=== PATIENT | male | born 1985 | race Caucasian/White ===

== ENCOUNTER 2024-05-08 08:38 | Emergency (ER) | payer BC, SELFPAY ==
[2024-05-08] VITALS (30 sets, daily range): BP systolic 109–150; BP diastolic 73–115; PULSE 64–97; RESP 8–21; O2SAT 98
--- NOTE | 2024-05-08 08:45 | RT.EKG_ITS ---
APPROVED REPORT Exam: Resting ECG Reason for Exam: ?tia Patient Location: E HR:77 bpm ECG Measurements Heart Rate 77 AXIS GA 161 P 53 QRSd 86 QRS -5 QT 355 T 20 QTc 402 Conclusion Sinus rhythm...normal P axis, V-rate 60- 99
--- NOTE | 2024-05-08 09:00 | DI.CT_ITS ---
Exam(s) CT BRAIN NECK CTA EXAM: CT BRAIN NECK CTA CLINICAL HISTORY: right sided paresthesia, resolved. TECHNIQUE: Imaging Protocol: Axial CT angiography was performed with multi-slice acquisition and mu lti-planar and/or 3D reconstructions. CONTRAST MATERIAL: Intravenous: Omnipaque 350 Contrast volume:structured data in ml COMPARISON: None FINDINGS: CTA Neck W: Aortic arch anatomy: The aortic arch anatomy is conventional and there is no significant stenosis at the origin of the great vessels off of the aortic arch. No intimal flap evident. Anterior circulation: Both common carotid arteries ascend with normal luminal diameters. At the level the carotid bulbs and proximal internal carotid arteries there is no significant plaque/ no significant narrowing. The internal carotid arteries are patent without significant narrowing in the upper neck but there is a 360 degree turn in the upper left extracranial internal carotid artery and some milder tortuosity of the same vessel on the opposite-right side. Posterior circulation: Both vertebral arteries originate in conventional fashion off of the subclavian arteries and there is no obvious stenosis at the origin of the vertebral arteries. Both vertebral arteries exhibit normal luminal diameters within the foramen transversarium. Both vertebral arteries contribute to the formation of the basilar artery at the skull base. CTA Brain W: Anterior circulation: Both internal carotid arteries are patent in the skull base-carotid canals as well as within the cave rnous sinuses. The supraclinoid aspects of the ICAs are patent. Both A1 segments are patent as are the anterior cer ebral arteries and there is no evidence of aneurysm at the level of the anterior communicating artery . Both middle cerebral arteries are patent with no evidence of significant stenosis nor intraluminal th rombus. There also no aneurysms of these vessels. Posterior circulation: The basilar artery ascends in the midline. Distally it gives off patent bilateral superior cerebella r arteries. Above this level the basilar artery terminates as patent bilateral posterior cerebral arteries. There is no evidence of aneurysm at the tip of the basilar artery nor elsewhere in the [id number]-[id number] is. CT BRAIN: There is no evidence of intracranial hemorrhage, mass effect, or shift of midline structures. There are no extra-axial fluid collections. Ventricles are not enlarged or shifted. There are no ring enh ancing lesions in the brain and no abnormal meningeal enhancement. IMPRESSION: 1. Patent carotid arteries in the neck. No hemodynamically significant stenosis. However, the upper aspect of both internal carotid arteries in the neck are tortuous, more so on the left side. 2. Patent vertebral arteries. 3. Patent intracranial arteries. 4. No acute intracranial findings. No ring enhancing lesions in the brain. No aneurysms. Discussed by phone with ER provider. RADIATION DOSE DELIVERED: 2,400.43mGy.cm Total DLP DATA REPOSITORY: All CT scans at this facility are submitted to the National Radiology Data Registry (NRDR) Dose Index Registry (DIR) with the [employer] ([employer]). RADIATION OPTIMIZATION: All CT scans at this facility use at least one of these dose optimization te chniques: automated exposure control; mA and/or kV adjustment per patient size (includes targeted exa ms where dose is matched to clinical indication); or iterative reconstruction.
--- NOTE | 2024-05-08 09:02 | ED.GENADUL_ITS ---
Discharge Plan Disposition Patient Disposition: Home Condition: Stable Discharge Details Clinical Impression: Headache, Paresthesia Primary Care Provider: Rivera Mcgill ED Provider: German Amin Home Meds and New Rx's Prescriptions: Continued magnesium oxide 400 mg magnesium capsule 400 mg PO DAILY Discharge Instructions Additional Instructions: Your blood work and imaging did not show any concerning findings Follow-up with your primary care provider within 1 week I recommend taking a [id number] daily 81 mg aspirin daily follow-up with your primary care provider If you feel more ill or develop unilateral weakness, or changes in speech return to the emergency department for reevaluation HPI General Mode of arrival: ambulatory . Date/Time Provider Initiated Documentation: 05/08/24 08:39 . Limitations to Documentation: no limitations . Information obtained by: patient . History of Present Illness 38 year old M presents to the emergency department with the chief complaint of head pressure and right sided paresthesia, described as mild, Patient reports no radiation. Patient started experiencing this hour(s) (2) and it has been now resolved. No relieving factors improve symptom(s), No exacerbating factors reported . Patient notes denies chest pain and shortness of breath. Patient did receive the following treatments prior to arrival, none Related Data Home Medications ?Medication ?Instructions ?Recorded ?Confirmed magnesium oxide 400 mg PO DAILY 05/08/24 05/08/24 Allergies Allergy/AdvReac Type Severity Reaction Status Date / Time No Known Allergies Allergy Verified 05/08/24 08:47 General Stated Complaint: CVA/TIA BHANU: 3 Review of Systems All systems reviewed & are unremarkable except as noted in HPI and below Constitutional Constitutional: Denies chills, Denies fever(s) and Denies weakness Cardiovascular Cardiovascular: Denies chest pain and Denies dyspnea Respiratory Respiratory: Denies cough and Denies dyspnea Gastrointestinal Gastrointestinal: Denies abdominal pain, Denies nausea and Denies vomiting Musculoskeletal Musculoskeletal: Denies joint swelling Neurologic Neurologic: Denies weakness Exam Const General: no acute distress Orientation: alert HENMT Head: normal to inspection Ears: external ears normal General nose exam: external nose normal Mouth: moist mucous membranes Eyes General: appearance normal, both eyes and all related structures Neck Neck: normal visual inspection Resp Effort & Inspection: normal respiratory effort and able to speak in complete sentences Auscultation: clear to auscultation bilaterally Cardio Jugular venous pressure: no JVD Rate: regular rate Heart Sounds: no murmurs Skin General skin exam: no rashes or lesions noted Neuro General: patient alert and patient oriented x3 Extrem General: normal to inspection Psych Mental Status: mental status grossly normal Course Vital Signs Vital signs: Vital Signs Pulse 97 H 05/08/24 08:43 Respiratory Rate 20 05/08/24 08:43 Blood Pressure 150/115 H 05/08/24 08:43 Pulse Oximetry 98 05/08/24 08:43 Temperature Source Skin 05/08/24 08:43 Pulse 97 H 05/08/24 08:43 Respiratory Rate 20 05/08/24 08:43 Respiratory Effort Normal, Non-Labored 05/08/24 08:51 Blood Pressure 150/115 H 05/08/24 08:43 Blood Pressure Position Sitting 05/08/24 08:43 Pulse Oximetry 98 05/08/24 08:43 Oxygen Delivery Method Room Air 05/08/24 08:43 Oxygen Flow Rate 0 05/08/24 08:43 Pain Level 0 05/08/24 08:43 Medical Decision Making 38-year-old male with no significant chronic medical problems, states he had a seizure when he was in his 20s at one time and none since and had negative follow-up workup per patient, comes in with complaints that he had a pressure in his head while driving to work and then felt a coolness sensation on the right side of his body. The symptoms have since resolved and lasted a few minutes per the patient. 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 He denies any chest pain, weakness, fevers, chills. He is alert and oriented x 4 on arrival with normal gait. He has no focal motor or sensation deficits. Cranial nerves II through XII are intact. His NIH is 0 on exam. Unclear etiology for his symptoms that he had earlier that have since resolved. He had no weakness so does not seem entirely consistent with a TIA but will proceed with a CT and CTA of the brain and neck, and obtain CBC, CMP, troponin and monitor. Delta troponin negative and CTA and CT head unremarkable. Patient stable ambulatory without any deficits in gait, still has no findings concerning on neurological exam NIH still 0 Does not seem consistent entirely with a TIA but even if this is a TIA he is low risk and overall feel he can be managed outpati ent. He will follow-up with his PCP and return precautions given Differential Diagnosis Differential Diagnosis: TIA, stress response, hemorrhage Imaging Data Radiologic Study: Attestation: I personally reviewed and interpreted this imaging study as follows: Imaging: CT Scan Radiologist's impression: Patient Name: Venkata Mcpherson Unit #: [id number] Loc: ER Ordering Provider: German Amin M.D. Status: REG ER Primary Care Provider: Rivera Mcgill NP Date of Exam: 05/08/24 Sex: M : 1985 Age: 38 Exam(s) a CT:CT brain & neck CTA Exam(s) CT BRAIN NECK CTA EXAM: CT BRAIN NECK CTA CLINICAL HISTORY: right sided paresthesia, resolved. TECHNIQUE: Imaging Protocol: Axial CT angiography was performed with multi- slice acquisition and multi-planar and/or 3D reconstructions. CONTRAST MATERIAL: Intravenous: Omnipaque 350 Contrast volume:structured data in ml COMPARISON: None FINDINGS: CTA Neck W: Aortic arch anatomy: The aortic arch anatomy is conventional and there is no significant stenosis at the origin of the great vessels off of the aortic arch. No intimal flap evident. Anterior circulation: Both common carotid arteries ascend with normal luminal diameters. At the level the carotid bulbs and proximal internal carotid arteries there is no significant plaque/no significant narrowing. The internal carotid arteries are patent without significant narrowing in the upper neck but there is a 360 degree turn in the upper left extracranial internal carotid artery and some milder tortuosity of the same vessel on the opposite-right side. Posterior circulation: Both vertebral arteries originate in conventional fashion off of the subclavian arteries and there is no obvious stenosis at the origin of the vertebral arteries. Both vertebral arteries exhibit normal luminal diameters within the foramen transversarium. Both vertebral arteries contribute to the formation of the basilar artery at the skull base. CTA Brain W: Anterior circulation: Both internal carotid arteries are patent in the skull base-carotid canals as well as within the cavernous sinuses. The supraclinoid aspects of the ICAs are patent. Both A1 segments are patent as are the anterior cerebral arteries and there is no evidence of aneurysm at the level of the anterior communicating artery. Both middle cerebral arteries are patent with no evidence of significant stenosis nor intraluminal thrombus. There also no aneurysms of these vessels. Posterior circulation: The basilar artery ascends in the midline. Distally it gives off patent bilateral superior cerebellar arteries. Above this level the basilar artery terminates as patent bilateral posterior cerebral arteries. There is no evidence of aneurysm at the tip of the basilar artery nor elsewhere in the [id number]. CT BRAIN: There is no evidence of intracranial hemorrhage, mass effect, or shift of midline structures. There are no extra-axial fluid collections. Ventricles are not enlarged or shifted. There are no ring enhancing lesions in the brain and no abnormal meningeal enhancement. IMPRESSION: 1. Patent carotid arteries in the neck. No hemodynamically significant ari nosis. However, the upper aspect of both internal carotid arteries in the neck are tortuous, more so on the left side. 2. Patent vertebral arteries. 3. Patent intracranial arteries. 4. No acute intracranial findings. No ring enhancing lesions in the brain. No aneurysms. Lab Data Lab results reviewed: Yes I reviewed the patient's lab results. ECG Data Attestation: I personally reviewed and interpreted this ECG (s) as follows: Prior ECG tracings: not available for review Interpretation: sinus rate of 77 pr 161 no stemi Quality:SDOH Health Related Social Needs: No Data to Display PFSH All Active Problems (Updated 05/08/24 @ 12:37 by German Amin MD) Paresthesia (Acute) Headache (Acute) Depression (Chronic) Medical History Seizure once after eating Family History Father Heart disease MS Hypertension Social History Smoking/Tobacco Use Status: Never Second Hand Exposure: Yes Smoking risk assessment performed?: Yes Alcohol Intake: current Alcohol Intake frequency: a few times a week Alcohol type: beer Drug use: Occasionally Substance use type: marijuana Caregiver/Support person: No Household members: spouse, family and children Housing: house Communication Needs: None Do you need help understanding health information?: Never Pets and animals: Yes Pets and animals: cat(s) and dog(s) Sexually active: Yes Do you think of yourself as: straight/heterosexual Current gender identity: male What is your relationship status?: How often do you talk on the phone with friends or family?: once per week How often do you get together with friends or relatives?: once per week Do you belong to any clubs or organized social groups?: no Panel score (0-1 are the most socially isolated patients): 1 What type of physical activity do you participate in: walking Duration: 15-30 minutes/day Frequency: 1-2 times per week Sylvie/Jewish: No preference Seatbelt use: always Helmet use: Yes Drive intox or ride w/intox courtesy van driver: No
[2024-05-08 09:32] LABS: Abs Immature Grans 0.03 10^3/uL (0.0-0.06); Absolute Basophil Count 0.03 10^3/uL (0.0-0.2); Absolute Eosinophil Count 0.06 10^3/uL (0.0-0.7); Absolute Monocyte Count 0.63 10^3/uL (0.1-0.8); Absolute Neutrophil Count 7.62 10^3/uL (1.2-6.7); Basophils % 0.3 %; Eosinophils % 0.6 %; HCT 47.4 % (40.0-50.0); HGB 15.4 g/dL (13.5-17.5); Immature Grans % 0.3 %; Lymphocytes % 18.5 %; MCH 28.6 pg (27.0-33.0); MCHC 32.5 % (32.0-36.0); MCV 88 fL (80-95); MPV 9.1 fL (8.0-11.0); Monocytes % 6.1 %; Neutrophils % 74.2 %; Platelet Count 291 10^3/uL (130-400); RBC 5.38 10^6/uL (4.36-5.78); RDW 12.3 % (11.8-14.1); RDW-SD 39.7 fL; WBC 10.27 10^3/uL (4.4-10.8)
[2024-05-08] MEDS: Omnipaque 350 MG/ML 500 ML BTL-Imaging package IJ (09:43)
[2024-05-08] MEDS: Normal Saline - Diluent 50 ML VIAL IJ (09:45)
[2024-05-08 09:56] LABS: ALT 35 U/L (16-63); AST 17 U/L (15-37); Alkaline Phosphatase 86 U/L (46-116); BUN 19 mg/dL (7-18); Bilirubin, Total 0.77 mg/dL (0.2-1.0); CREATININE 1.1 mg/dL (0.70-1.30); Calcium 8.7 mg/dL (8.5-10.1); Chloride 104 mmol/L (98-107); Estimated GFR 88.67 (mL/min/1.73m2); Glucose 117 mg/dL (74-106); Potassium 3.9 mmol/L (3.5-5.1); Sodium 141 mmol/L (136-145); TSH (W/Ref FT4) 1.61 uIU/mL (0.36-3.74); Total Protein 7.3 g/dL (6.4-8.2)
[2024-05-08 09:59] LABS: Troponin I < 50 ng/L (< or =60)
[2024-05-08 10:06] LABS: Bilirubin Negative (Negative); Blood Trace-lysed (Negative); Clarity Clear (Clear); Glucose Negative (Negative); Ketones Negative (Negative); Leukocyte Esterase Negative (Negative); Nitrite Negative (Negative); Urobilinogen 0.2 mg/dL (Up to 0.2)
[2024-05-08 10:19] LABS: Bacteria Rare HPF (Negative); C & S Indicated? No; Casts Negative LPF (Negative); Crystals Negative HPF (Negative); Epithelial Cells Rare HPF (Negative); Mucus Negative (Negative); WBC 0-2 HPF (0-5)
[2024-05-08 12:19] LABS: Troponin I < 50 ng/L (< or =60)
== END 2024-05-08 13:44 | disposition home or self-care (01) ==
PROVIDERS: Emergency Provider Emergency Medicine; PCP Nurse Practitioner Family
DX: R51.9 Headache, unspecified (principal); R20.0 Anesthesia of skin
CPT/HCPCS: 36415; 70496; 70498; 80053; 93005; 99285; 81003; 81015; 83735; 84443; 84484; 85025; 93010; 99284

== ENCOUNTER 2024-06-22 02:11 | Outpatient (CLI) | payer BC, SELFPAY ==
[2024-06-22 08:25] LABS: Hemoglobin A1C 5.6 % (<5.7)
[2024-06-22 08:32] LABS: Calculated LDL 121 mg/dL (<100); Cholesterol 182 mg/dL (<200); HDL Cholesterol 40 mg/dL (40-60); Triglyceride 105 mg/dL (<150)
[2024-06-22 22:47] LABS: PSA, Screening 0.2 ng/mL (<=2.5)
== END 2024-06-22 02:12 | disposition home or self-care (01) ==
PROVIDERS: PCP Nurse Practitioner Family; Visit Provider Nurse Practitioner Family
DX: Z13.220 Encounter for screening for lipoid disorders (principal); Z12.5 Encounter for screening for malignant neoplasm of prostate; Z13.1 Encounter for screening for diabetes mellitus
CPT/HCPCS: 36415; 80061; 84153; 83036